=== PATIENT | male | born 1970 | race Caucasian/White ===

== ENCOUNTER → 2025-04-03 | Outpatient (CLI) | payer BC, SELFPAY ==
[2025-04-03 08:13] LABS: Collection Type, Urine Clean Catch; Squamous Epithelial Cell,Urine 0 /hpf (0-5)
[2025-04-03 08:46] LABS: Basophils # (Auto) 0.1 Thou/mm3 (0.0-0.2); Basophils % (Auto) 1 % (0-2.5); Eosinophils # (Auto) 0.5 Thou/mm3 (0.0-0.5); Eosinophils % (Auto) 6 % (0-10); Hematocrit 45.4 % (41.0-53.0); Hemoglobin 15.7 g/dL (13.5-16.0); Immature Granulocytes % (Auto) 0 % (0-0); Immature Granulocytes Auto 0.02 Thou/mm3 (0.00-0.00); Lymphocytes % (Auto) 26 % (10-50); Mean Corpuscular HGB Conc 34.6 g/dl (31.0-37.0); Mean Corpuscular Hemoglobin 29.3 pg (25.0-35.0); Mean Corpuscular Volume 85 fL (80-100); Monocytes # (Auto) 0.6 Thou/mm3 (0.0-0.8); Monocytes % (Auto) 8 % (0-12); Neutrophils # (Auto) 4.5 Thou/mm3 (1.8-7.7); Neutrophils % (Auto) 59 % (37-80); Nucleated Red Blood Cell % 0 /100 WBC (0); Platelet Count 271 Thou/mm3 (140-440); RDW Standard Deviation 39.6 fL (35.1-43.9); Red Blood Count 5.35 Miln/mm3 (4.50-5.90); White Blood Count 7.7 Thou/mm3 (3.8-10.6)
[2025-04-03 08:51] LABS: Prostate Specific Antigen 1.28 ng/mL (0-4.00)
[2025-04-03 08:53] LABS: Bacteria,Urine Rare; Bilirubin,Urine Negative (Negative); Blood,Urine Negative (Negative); Clarity,Urine Clear (Clear/Hazy); Color,Urine Lt-Yellow (Lt Yel-Yel); Culture Indicated,Urine Not Indicated; Glucose, Urine Negative (Negative); Ketones,Urine Negative (Negative); Leukocyte Esterase,Urine Negative (Negative); Nitrite,Urine Negative (Negative); PH,Urine 6.5 (5.0-7.0); Protein,Urine Negative (Neg - Trace); RBC,Urine 4 /hpf (0-3); Specific Gravity,Urine 1.025 (1.001-1.035); Urobilinogen,Urine Negative mg/dL (0.0-1.0); WBC,Urine < 1 /hpf (0-5)
[2025-04-03 08:54] LABS: Vitamin D 25 Hydroxy Total 25.9 ng/mL (7.3-40.2)
[2025-04-03 09:00] LABS: Alanine Aminotransferase 11 U/L (10-49); Albumin, Serum 4.6 gm/dL (3.5-5.0); Albumin/Globulin Ratio 1.9 (1.2-2.2); Alkaline Phosphatase 68 U/L (46-116); Anion Gap 12 (7-16); Aspartate Amino Transferase 20 U/L (0-34); BUN/Creatinine Ratio 13 Ratio (12-20); Bilirubin,Total 0.6 mg/dL (0.3-1.2); Blood Urea Nitrogen 13 mg/dL (9-23); Calcium 8.9 mg/dL (8.3-10.6); Calcium (Corrected) 8.9 mg/dL (8.5-10.1); Carbon Dioxide 28.5 mMol/L (20.0-31.0); Cardiac Risk Estimate 3.9 RATIO (4.0-6.7); Chloride 105 mMol/L (98-107); Cholesterol 169 mg/dL (132-200); Globulin 2.4 gm/dL (2.3-3.5); Glucose 110 mg/dL (74-106); HDL Cholesterol 43 mg/dL (40-60); LDL Cholesterol,Calculated 105 mg/dL (0-130); Osmolality,Calculated 289 (275-295); Potassium 4.5 mMol/L (3.4-5.1); Sodium 145 mMol/L (136-145); Triglycerides 103 mg/dL (30-150); eGFR > 60 See Note
[2025-04-06 06:57] LABS: Fecal Globin Result NOT DETECTED (NOT DETECTED)
== END | disposition home or self-care (01) ==
PROVIDERS: PCP Family Medicine; Referring Provider Family Medicine; Visit Provider Family Medicine
DX: Z00.00 Encounter for general adult medical examination without abnormal findings (principal); Z12.11 Encounter for screening for malignant neoplasm of colon; Z13.0 Encounter for screening for diseases of the blood and blood-forming organs and certain disorders involving the immune mechanism; Z13.1 Encounter for screening for diabetes mellitus; Z13.21 Encounter for screening for nutritional disorder; Z13.220 Encounter for screening for lipoid disorders; Z13.29 Encounter for screening for other suspected endocrine disorder; Z83.3 Family history of diabetes mellitus
CPT/HCPCS: 36415; 80053; 80061; 81001; 82274; 82306; 84153; 84443; 85025; G0328

== ENCOUNTER → 2025-05-11 | Outpatient (CLI) | payer BC, SELFPAY ==
[2025-05-11 07:45] LABS: Collection Type, Urine Clean Catch; Squamous Epithelial Cell,Urine 0 /hpf (0-5)
[2025-05-11 08:26] LABS: Glucose Estimated Average 117 mg/dL (80-131); Hemoglobin A1C 5.7 % Hgb (4.8-6.0)
[2025-05-11 10:12] LABS: Glucose, 2 Hour PP 103 mg/dL (50-119)
[2025-05-11 10:51] LABS: Bilirubin,Urine Negative (Negative); Blood,Urine Negative (Negative); Clarity,Urine Clear (Clear/Hazy); Color,Urine Lt-Yellow (Lt Yel-Yel); Culture Indicated,Urine Not Indicated; Glucose, Urine Negative (Negative); Ketones,Urine Negative (Negative); Leukocyte Esterase,Urine Negative (Negative); Nitrite,Urine Negative (Negative); PH,Urine 6.5 (5.0-7.0); Protein,Urine Negative (Neg - Trace); RBC,Urine 2 /hpf (0-3); Specific Gravity,Urine 1.023 (1.001-1.035); Urobilinogen,Urine Negative mg/dL (0.0-1.0); WBC,Urine 1 /hpf (0-5)
== END | disposition home or self-care (01) ==
LOC: COPL 06:38
PROVIDERS: PCP Family Medicine; Referring Provider Family Medicine; Visit Provider Family Medicine
DX: R73.9 Hyperglycemia, unspecified (principal); R31.9 Hematuria, unspecified
CPT/HCPCS: 36415; 81001; 82947; 83036

== ENCOUNTER 2025-08-25 07:55 | Day surgery (SDC) | payer BC, SELFPAY ==
--- NOTE | 2025-08-24 07:00 | EKG_ITS ---
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
[2025-08-24 09:30] VITALS: BMI 29.2
[2025-08-24 10:48] LABS: Basophils # (Auto) 0.1 Thou/mm3 (0.0-0.2); Basophils % (Auto) 1 % (0-2.5); Eosinophils # (Auto) 0.4 Thou/mm3 (0.0-0.5); Eosinophils % (Auto) 5 % (0-10); Hematocrit 46.9 % (41.0-53.0); Hemoglobin 15.5 g/dL (13.5-16.0); Immature Granulocytes Auto 0.02 Thou/mm3 (0.00-0.00); Lymphocytes # (Auto) 2.6 Thou/mm3 (1.0-4.8); Lymphocytes % (Auto) 29 % (10-50); Mean Corpuscular HGB Conc 33.0 g/dl (31.0-37.0); Mean Corpuscular Hemoglobin 28.6 pg (25.0-35.0); Mean Corpuscular Volume 87 fL (80-100); Monocytes # (Auto) 0.7 Thou/mm3 (0.0-0.8); Monocytes % (Auto) 8 % (0-12); Neutrophils # (Auto) 5.3 Thou/mm3 (1.8-7.7); Neutrophils % (Auto) 58 % (37-80); Nucleated Red Blood Cell # 0.00 Thou/mm3 (0.00-0.00); Nucleated Red Blood Cell % 0 /100 WBC (0); Platelet Count 286 Thou/mm3 (140-440); RDW Standard Deviation 39.6 fL (35.1-43.9); Red Blood Count 5.42 Miln/mm3 (4.50-5.90); White Blood Count 9.2 Thou/mm3 (3.8-10.6)
[2025-08-24 10:57] LABS: Anion Gap 9 (7-16); BUN/Creatinine Ratio 9 Ratio (12-20); Blood Urea Nitrogen 9 mg/dL (9-23); Calcium 9.5 mg/dL (8.3-10.6); Carbon Dioxide 29.0 mMol/L (20.0-31.0); Chloride 101 mMol/L (98-107); Creatinine (Component) 1.0 mg/dL (0.6-1.3); Estimated Creatinine Clearance 91.4 mL/min (>60); Glucose 94 mg/dL (74-106); Osmolality,Calculated 276 (275-295); Potassium 4.3 mMol/L (3.4-5.1); Sodium 139 mMol/L (136-145); eGFR > 60 See Note
[2025-08-25] VITALS (12 sets, daily range): BP systolic 117–145; BP diastolic 72–96; PULSE 72–101; RESP 19–20; TEMP 36.1–36.6; O2SAT 94–100; BMI 28.9
--- NOTE | 2025-08-25 09:45 | CHAP ---
Prayedwith patient before procedure.
--- NOTE | 2025-08-25 11:27 | SUR.PHASEI ---
1127 patient arrived to recovery resting comfortably in [facility], sleeping and able to arouse with verbal prompting- then drifts back to sleep, breathing unlabored, vital signs stable, denies pain, dressing inatct to upper groin; dermabond, gauze, medipopre tape, no bleeding noted, report received from Clive PHOENIX and Mango ARRIAZA
--- NOTE | 2025-08-25 11:36 | ESOP_ITS ---
Date of Procedure 08/25/25 Pre Op Diagnosis Bilateral inguinal hernia Post Op Diagnosis Bilateral direct inguinal hernias Procedure Repair of bilateral inguinal hernias with mesh Findings Bilateral direct inguinal hernias Procedure Description Patient brought into the operating room in supine position. After administration of general endotracheal anesthesia, patient's bilateral groins were shaved, prepped and draped in standard surgical manner. The procedure started on the patient's right side. The right inguinal crease was anesthetized with half percent Marcaine. An approximately 6 cm incision was made and dissection was carried to subcutaneous tissue. The Yue's fascia was divided and the external oblique aponeurosis was opened towards the external ring. The hernia sac and the spermatic cord structures were from the posterior aspect of the external oblique aponeurosis at the level of pubic tubercle. The hernia sac was then meticulously dissected off the spermatic cord structures at the level of internal ring. Patient was noted to have direct right inguinal hernia defect. The defect was primarily closed with [id number] sutures using 0 Vicryl. The floor of inguinal canal was then reconstructed with ultra Pro proceed mesh. The mesh was secured with running 2-0 Prolene suture. The mesh secured medially to the pubic tubercle, superiorly into the conjoin tendon, inferiorly and to the shelving edge of inguinal ligament, the mesh was placed around the cord structures and tacked under the external oblique aponeurosis laterally. The area was copiously and thoroughly washed and irrigated, all the fluids were suctioned and the suction fluid returned clear. Hemostasis was adequate and satisfactory. External oblique aponeurosis was closed with running 2-0 Vicryl suture, and Yue's fascia was closed with interrupted suture using 3-0 Vicryl. The incision was closed with 4-0 Monocryl in subcutaneous fashion. I then turned my attention to patient's left side. Similarly he was noted to have a direct left inguinal hernia defect and the procedure was performed in exactly similar fashion. Instruments, needles and sponge counts were reported to be correct ?2. Patient tolerated the procedure well. He was extubated, breathing spontaneously and without difficulty and was transferred to postanesthesia care in stable condition. Anesthesia GETA and local Pathology / specimen None Estimated Blood Loss 25 Condition Stable Disposition PACU Surgeon Michael Caicedo MD Surgical Staff Operation Date: 08/25/25 10:00 Case Staff CREDIT COLLECTIONS CLERK: Pérez Duggan merchandise displayer: Breonna Young
[2025-08-25] MEDS: ACETAMINOPHEN IVPB 1,000 MG/100 ML VIAL 250 MG IV (12:18)
[2025-08-25] MEDS: KETOROLAC INJ 30 MG/ML VIAL IVP (12:26)
--- NOTE | 2025-08-25 13:07 | SUR.PHASEII ---
1307 Patient meets discharge criteria from recovery, awake and alert, breathing unlabored, vital signs stable, denies pain at rest, endorsed discomfort upon movement, dressing intact; no bleeding noted, abdominal binder applied to patient per MD order, patient drinking fluids; tolerating well, denies nausea, assisted with dressing into his clothing by his , discharge instructions given to patient and patients , signed discharge instructions. Patient given all his belongings prior to discharge, transported via wheelchair and left in a private vehicle.
== END 2025-08-25 13:07 | disposition home or self-care (01) ==
PROVIDERS: PCP Family Medicine; Referring Provider Surgery; Visit Provider Surgery
PROC: (CPT 49505; principal; 2025-08-25 09:45)
DX: K40.20 Bilateral inguinal hernia, without obstruction or gangrene, not specified as recurrent (principal); Z01.810 Encounter for preprocedural cardiovascular examination
CPT/HCPCS: 49505; 36415; 80048; 85025; 93005; A4217; A4649; C1781; J0131; J0690; J1885; J2250; J2704; J3010; J3490